=== PATIENT | male | born 1950 | race Caucasian/White ===

== ENCOUNTER 2016-04-13 20:02 | Emergency (ER) | payer BC ==
[~2016-04-13] VITALS: Ht 175.3 cm; Wt 86.2 kg
[2016-04-13] MEDS ORDERED: LEVOTHYROXINE0.05 MG PO (20:12)
[2016-04-13] MEDS ORDERED: SIMVASTATIN40 MG PO (20:12)
[2016-04-13] MEDS ORDERED: ASPIRIN EC325 MG PO (20:12)
[2016-04-13] MEDS ORDERED: MODAFINIL200 MG PO (20:13)
[2016-04-13] MEDS ORDERED: AMLODIPINE BESYL5 M1 PO (20:14)
[2016-04-13] MEDS ORDERED: ANDROGEL1.25 GM TOP (20:15)
[2016-04-13] MEDS ORDERED: NAPROSYN500 MG PO (21:23)
[2016-04-13 21:26] VITALS: BP 149/79
== END 2016-04-13 21:26 | disposition home or self-care (01) ==
LOC: ER 20:02
DX: S50.12XA Contusion of left forearm, initial encounter (principal); W00.1XXA Fall from stairs and steps due to ice and snow, initial encounter; Y93.9 Activity, unspecified; Y92.9 Unspecified place or not applicable; Y99.9 Unspecified external cause status

== ENCOUNTER → 2017-02-11 | Outpatient (CLI) | payer BC ==
[~2017-02-11] MED LIST: AMLODIPINE BESYL5 M1 PO; ANDROGEL1.25 GM TOP; ASPIRIN EC325 MG PO; LEVOTHYROXINE0.05 MG PO; MODAFINIL200 MG PO; NAPROSYN500 MG PO; SIMVASTATIN40 MG PO
--- NOTE | ~2017-02-11 | SLE ---
[facility] [address] [place] [address] POLYSOMNOGRAPHY STUDY Name: SWAPNA BRITTON Room #: [facility] Daniel.#: [id number] Admission: 02/11/17 Attend Phys: Mirza Herrera MD Discharge: Date of : 46 Report #: [id number] THIS REPORT FOR: //name// CC: Mirza Ross MULTIPLE SLEEP LATENCY STUDY PRIOR NIGHT STUDY: Sleep efficiency 49%. Apnea-hypopnea index 0.3 events per sleep hour. Periodic limb movement with the arousal index of 9.3 events per sleep hour. Nap number 1 sleep latency 12m REM latency -. Nap number 2 sleep latency 16m30s REM latency -. Nap number 3 sleep latency 15m30s REM latency -. Nap number 4 sleep latency 9m30s REM latency -. Nap number 5 sleep latency 6m REM latency -. LATENCY DATA: Mean sleep latency approximately 12 minutes. No sleep-onset REM periods noted. IMPRESSION: This study does not suggest significant daytime somnolence or narcolepsy. Further discussion recommended. Of note, patient has a history of using dextroamphetamine; however, this was held for the week prior to study and day of study. <ELECTRONICALLY SIGNED> By: Mirza Herrera MD 03/26/17 [id number] 1805 [id number] Mirza Herrera MD /nt
[2017-02-11 16:33] LABS: AMP/METHAMP Negative (Negative); BARBITURATES Negative (Negative); BENZODIAZEPINES Negative (Negative); COCAINE Negative (Negative); METHADONE Negative (Negative); OPIATES Negative (Negative); PCP Negative (Negative)
== END ==
LOC: SLEEPLAB 01-27 11:55
PROVIDERS: Internal Medicine Pulmonary Disease
DX: G47.33 Obstructive sleep apnea (adult) (pediatric) (principal)

== ENCOUNTER → 2019-08-05 | Outpatient (CLI) | payer BC | LOC: SJCVCIMAG 10:29 | DX: I25.10 Atherosclerotic heart disease of native coronary artery without angina pectoris (principal); I10 Essential (primary) hypertension; R53.83 Other fatigue; I48.0 Paroxysmal atrial fibrillation ==

== ENCOUNTER → 2020-02-16 | Outpatient (CLI) | payer OTHER | LOC: SJCVC 14:30 | PROVIDERS: ATTEND Internal Medicine Cardiovascular Disease | DX: R94.31 Abnormal electrocardiogram [ECG] [EKG] (principal); I49.9 Cardiac arrhythmia, unspecified; I48.0 Paroxysmal atrial fibrillation; I10 Essential (primary) hypertension; E78.00 Pure hypercholesterolemia, unspecified; D68.59 Other primary thrombophilia; R93.1 Abnormal findings on diagnostic imaging of heart and coronary circulation; G47.33 Obstructive sleep apnea (adult) (pediatric); Z79.82 Long term (current) use of aspirin; Z79.899 Other long term (current) drug therapy ==

== ENCOUNTER → 2020-04-18 | Outpatient (CLI) | payer OTHER ==
[2020-04-18 14:52] LABS: CREATININE 0.9 mg/dL (0.7-1.3)
== END ==
LOC: MRI 12:37 → LAB 13:21
PROVIDERS: ATTEND Psychiatry & Neurology Neuromuscular Medicine
DX: G31.1 Senile degeneration of brain, not elsewhere classified (principal); J34.89 Other specified disorders of nose and nasal sinuses

== ENCOUNTER → 2020-08-09 | Outpatient (CLI) | payer OTHER | LOC: SJCVC 14:07 | PROVIDERS: ATTEND Internal Medicine Cardiovascular Disease | DX: I48.0 Paroxysmal atrial fibrillation (principal); I10 Essential (primary) hypertension; E78.00 Pure hypercholesterolemia, unspecified; R93.1 Abnormal findings on diagnostic imaging of heart and coronary circulation; I25.10 Atherosclerotic heart disease of native coronary artery without angina pectoris; G47.33 Obstructive sleep apnea (adult) (pediatric); F32.9 Major depressive disorder, single episode, unspecified; Z79.899 Other long term (current) drug therapy; Z72.89 Other problems related to lifestyle ==

== ENCOUNTER → 2021-05-16 | Outpatient (CLI) | payer OTHER | LOC: SJCVC 12:59 | PROVIDERS: ATTEND Internal Medicine Cardiovascular Disease | DX: I48.0 Paroxysmal atrial fibrillation (principal); I10 Essential (primary) hypertension; E78.00 Pure hypercholesterolemia, unspecified; D68.59 Other primary thrombophilia; R93.1 Abnormal findings on diagnostic imaging of heart and coronary circulation; F32.A Depression, unspecified; G47.33 Obstructive sleep apnea (adult) (pediatric); Z79.82 Long term (current) use of aspirin; Z79.899 Other long term (current) drug therapy; Z72.89 Other problems related to lifestyle ==